=== PATIENT | male | born 1945 | race Caucasian/White ===

== ENCOUNTER 2016-09-01 13:30 | Emergency (ER) | payer OTHER, MEDICARE ==
[2016-09-01 14:41] VITALS: BP 179/73; PULSE 86; RESP 16; TEMP 97.5; O2SAT 96
--- NOTE | 2016-09-01 15:00 | UCPHY ---
H & P Time Seen by Provider: 09/01/16 14:58 Patient Type: Established HPI/ROS: HPI: 71-year-old male presents to ED with chief concern sore throat and right ear pain that onset suddenly yesterday. Pain is 6/10. Denies fever, chills, myalgias, runny nose, cough, dysphagia, trismus, shortness of breath, chest pain , abdominal pain, nausea, vomiting, diarrhea. Took ibuprofen with minimal improvement. No aggravating or alleviating factors. No sick counseled contacts. ROS:10 point review of systems is negative other than as stated in HPI Smoking Status: Never smoked Physical Exam: Vital signs stable, reviewed by me General: Awake, alert, calm, cooperative. No apparent distress. EENT: PERRLA, EOMI. Pupils injected. TMs intact, without redness or bulging. Nasal mucosa is erythematous without discharge. Pharynx erythematous. No abscess or exudates. Uvula midline. No drooling. No trismus. No frontal or maxillary tenderness to palpation. Neck: AC nodes nodes tender and swollen. Respiratory: Breathing unlabored. Lungs clear to auscultation bilaterally. CV: Heart rate regular. No murmur, rub, or gallop. GI: Abdomen soft, nontender. Bowel sounds positive x4 quadrants. : Deferred Skin: Warm, dry, intact. No rashes present. Musculoskeletal: Full ROM all extremities. Neuro: Alert oriented x3. Constitutional: Initial Vital Signs Temperature (C) 36.4 C 09/01/16 14:34 Heart Rate 86 09/01/16 14:34 Respiratory Rate 16 09/01/16 14:34 Blood Pressure 179/73 H 09/01/16 14:34 O2 Sat (%) 96 09/01/16 14:34 O2 Delivery Mode Room Air Allergies/Adverse Reactions: No Known Allergies Allergy (Unverified 09/01/16 14:33) Home Medications: Medication Instructions Recorded Lipitor 10 mg (*) 09/01/16 Metoprolol Succinate 09/01/16 Medical Decision Making ED Course/Re-evaluation: Afebrile nontoxic 71-year-old male presents to ED with sore throat that onset last night. Rapid strep negative. He has been counseled and follow up with primary care. Differential Diagnosis: Differential diagnosis includes but is not limited to viral pharyngitis, strep pharyngitis, other viral URI - Data Points Laboratory Results: 09/01/16 09/01/16 Unknown 14:30 Group A Strep Screen NEGATIVE (NEGATIVE) Group A Strep DNA Pending Departure - Departure Disposition: Home, Routine, Self-Care Clinical Impression: Pharyngitis Qualifiers: Pharyngitis/tonsillitis etiology: unspecified etiology Qualified Code(s): J02.9 - Acute pharyngitis, unspecified Condition: Good Instructions: Pharyngitis (ED) Additional Instructions: Plan: October alternate 600 mg of ibuprofen every 6 hours with 650 mg Tylenol every 6 hours (take 1 every 3 hours) for pain as needed Gargle with warm salt water 3 times daily Cepacol lozenges or Cepacol spray as needed for sore throat Follow up with primary care by Monday- for recheck without fail-When you call to schedule appointment, please let the office know you are an "ER follow up" appointment" Referrals: Brad Ferreira [Primary Care Provider] - As per Instructions - PQRS PQRS Measurement: 134: Depression screening and followup, PRIME MD-PHQ2 (12 years and older) Over the last 2 weeks, how often have you been bothered by any of the following problems? 1. Feeling down, depressed, or hopeless? 2. Little interest or pleasure in doing things? Patient answered no to both 1 and 2 130: Documentation of medications. Reviewed all patient medications, doses, route and frequency. 226: Do you smoke? No 47: 65 and older: Advanced care planning. Patient declines 51: 18 years old and older with diagnosis of COPD, spirometry performance. Patient has no history of COPD 52: 18 years old and older with COPD and symptoms of COPD or FEV1<60% no history of COPD
== END 2016-09-01 15:13 | disposition home or self-care (01) ==
LOC: CED 13:30
DX: J02.9 Acute pharyngitis, unspecified (principal)
CPT/HCPCS: 87880-PO; 99214-PO; G0463-PO